=== PATIENT | male | born 1955 | race Caucasian/White ===

== ENCOUNTER → 2021-03-23 | Outpatient (CLI) | payer OTHER ==
[~2021-03-23] MED LIST: IOHEXOL 240 MG/ML 50ML VIAL. ONE; IOHEXOL 300 MG/ML 75 ML VIAL. IV ONE
--- NOTE | 2021-03-23 12:51 | RAD ---
EXAM: Abdomen and pelvis CT with intravenous contrast. HISTORY: Pelvic pain. TECHNIQUE: Computed tomographic images of the abdomen and pelvis were obtained following the administ ration of intravenous contrast. Multiplanar reformatting was performed. *One or more of the following individualized dose reduction techniques were utilized for this examina tion: 1. Automated exposure control. 2. Adjustment of the mA and/or kV according to patient size. 3. Use of iterative reconstruction technique. COMPARISON: None. FINDINGS: Evaluation of the lower thorax demonstrates lingular atelectasis or scarring. There is no i nfiltrate or pleural effusion. The heart is normal in size. There are few tiny hepatic cysts. There i s no suspicious hepatic lesion. The gallbladder, pancreas, stomach and spleen are unremarkable. There is a 1.8 cm left adrenal nodule, the attenuation of which favors an adenoma. There are multiple simp le appearing renal cysts, largest of which measures 2.2 cm within the right upper pole. There is a 6 mm enhancing or hyperdense lesion along the posterior lower mid zone of the left kidney, possibly a s olid nodule or hemorrhagic cyst. There is no hydronephrosis. There are extrarenal pelves, an incident al finding. The bladder is unremarkable. The prostate is prominent in size. There is no appendicitis. There is no bowel obstruction. There is colonic diverticulosis. There is no convincing diverticulitis. There is a small fat-containing right inguinal hernia. The aorta is raine l in caliber. There is no lymphadenopathy. 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 There ar e degenerative changes throughout the visualized spine. This results in foraminal and central canal s tenosis at multiple levels. IMPRESSION: 1. No convincing acute abdominal or pelvic finding. 2. Colonic diverticulosis. 3. Small fat-containing right inguinal hernia. 4. Small simple appearing renal cysts. Follow up is not routinely performed for simple cysts. 5. 6 mm solid nodule or hemorrhagic cyst within the posterior lower mid zone left kidney. This may be too small to characterize sonographically. Short-term follow-up with a CT or MRI in 3-6 months can b e performed to confirm benignity. 6. 1.8 cm left adrenal nodule, the appearance of which favors an adenoma. 7. Tiny hepatic cysts. Electronically signed by: Katarina Schmitt MD (03/23/2021 12:49 PM) [id number]
== END ==
LOC: CT 08:39
PROVIDERS: ATTEND Internal Medicine Gastroenterology
DX: K57.30 Diverticulosis of large intestine without perforation or abscess without bleeding (principal); K40.90 Unilateral inguinal hernia, without obstruction or gangrene, not specified as recurrent; K76.89 Other specified diseases of liver; M16.11 Unilateral primary osteoarthritis, right hip
CPT/HCPCS: 74177; Q9967